=== PATIENT | male | born 1995 | race Caucasian/White ===

== ENCOUNTER 2019-03-26 13:54 | Emergency (ER) | payer OTHER ==
[2019-03-26 14:00] VITALS: BP 135/67; PULSE 80; TEMP 98.2; BMI 39.5
--- NOTE | 2019-03-26 14:35 | PDOC ---
History of Present Illness - General Chief Complaint: Rash Stated Complaint: NOSE PROBLEM/REDNESS/PAIN Time Seen by Provider: 03/26/19 14:22 - History of Present Illness Initial Comments: 03/26/19 14:34 24-year-old male presents for evaluation of rash on his nose and face which has been increasing over the last week is currently under the care of a spool worker for impetago Past History - Past Medical History Allergies/Adverse Reactions: Allergies Allergy/AdvReac Type Severity Reaction Status Date / Time No Known Allergies Allergy Verified 03/26/19 14:00 COPD: No - Suicide/Smoking/Psychosocial Hx Smoking History: Never smoked Review of Systems - Review of Systems Integumentary: Yes: See HPI *Physical Exam - Vital Signs Last Vital Signs Temp Pulse Resp BP Pulse Ox 98.2 F 80 18 135/67 99 03/26/19 13:57 03/26/19 13:57 03/26/19 13:57 03/26/19 13:57 03/26/19 13:57 - Physical Exam Comments: 03/26/19 14:33 crusted areas on the nose lips left periorbital area Medical Decision Making - Medical Decision Making 03/26/19 14:33 has facial impetigo is currently being treated I have referred him back to his spool worker *DC/Admit/Observation/Transfer Diagnosis at time of Disposition: Impetigo - Discharge Dispostion Disposition: HOME Condition at time of disposition: Stable Decision to Admit order: No - Referrals Referrals: Davion Rodrigues MD [Primary Care Provider] - - Patient Instructions Additional Instructions: Continue with the Bactroban as directed and follow-up with your spool worker without fail in the next 1-2 days for further evaluation and treatment options - Post Discharge Activity
== END 2019-03-26 14:36 | disposition home or self-care (01) ==
LOC: JERFT 13:54
DX: L01.00 Impetigo, unspecified (principal)
CPT/HCPCS: 99281-25